=== PATIENT | male | born 1990 | race Caucasian/White ===

== ENCOUNTER → 2020-01-30 16:03 | Outpatient (BNVA) | payer BC, SELFPAY | PROVIDERS: Family Provider Nurse Practitioner Family; PCP Nurse Practitioner Family; Visit Provider Nurse Practitioner Family | DX: Z11.59 Encounter for screening for other viral diseases (principal) | CPT/HCPCS: 87635 ==

== ENCOUNTER → 2020-08-25 15:34 | Outpatient (BNVA) | payer BC, SELFPAY | PROVIDERS: Family Provider Nurse Practitioner Family; PCP Nurse Practitioner Family; Visit Provider Nurse Practitioner Family | DX: R53.83 Other fatigue (principal); J01.10 Acute frontal sinusitis, unspecified; E56.9 Vitamin deficiency, unspecified | CPT/HCPCS: 82607 ==

== ENCOUNTER → 2024-03-05 09:56 | Outpatient (BNVA) | payer BC, SELFPAY | PROVIDERS: Family Provider Nurse Practitioner Family; PCP Urology; Visit Provider Nurse Practitioner | DX: R68.82 Decreased libido (principal); R53.83 Other fatigue | CPT/HCPCS: 80053; 84402; 84403; 85025 ==